=== PATIENT | male | born 1965 | race African-American/Black ===

== ENCOUNTER 2020-05-21 20:15 | Emergency (ER) | payer MEDICAID ==
[~2020-05-21] VITALS: Ht 180.3 cm; Wt 86.0 kg
[2020-05-21] MEDS ORDERED: HYDROCODONE/ACETAMINOPHEN 5/325MG TABLET PO ONE (21:15)
[2020-05-21 21:30] LABS: HEMATOCRIT. 43.6 % (42.0-52.0); HEMOGLOBIN. 13.9 g/dL (14.0-18.0); MEAN CORPUSCULAR HEMOGLOBIN 27.1 pg (28.0-32.0); MEAN CORPUSCULAR VOLUME 85.2 fL (80.0-94.0); MEAN PLATELET VOLUME 9.5 fl (7.4-10.4); PLATELET 148 x1000/uL (130-400); RED BLOOD CELL COUNT 5.13 mill/uL (4.7-6.1)
[2020-05-21 21:36] LABS: CHLORIDE 106 mEq/L (98-107)
[2020-05-21 21:40] LABS: ETHANOL BLOOD 13 mg/dL
[2020-05-21] MEDS ORDERED: FUROSEMIDE 20MG/2ML VIAL IVP ONE (21:45)
[2020-05-21 21:50] LABS: INR 1.6; PARTIAL THROMBOPLASTIN TIME 29.4 sec (23.4-31.0); PROTHROMBIN TIME 16.5 sec (9.6-11.0)
[2020-05-21 21:51] LABS: PLATELET ESTIMATE NORMAL
[2020-05-21] MEDS ORDERED: APIXABAN 5 MG TABLET PO STA (22:47)
[2020-05-22 00:30] VITALS: BP 151/91
== END 2020-05-22 01:30 | disposition home or self-care (01) ==
LOC: ER 20:15
DX: I82.409 Acute embolism and thrombosis of unspecified deep veins of unspecified lower extremity (principal); I11.0 Hypertensive heart disease with heart failure; I50.9 Heart failure, unspecified; Z88.6 Allergy status to analgesic agent; Z76.0 Encounter for issue of repeat prescription; Z91.19 Patient's noncompliance with other medical treatment and regimen; Z86.711 Personal history of pulmonary embolism
CPT/HCPCS: 36415; 71045; 80053; 80320; 83690; 83880; 84484; 85025; 85610; 85730; 93005; 93970; 96374; 99285; J1940; G0480